=== PATIENT | female | born 1985 | race Two or more races ===

== ENCOUNTER 2019-02-15 01:00 | Emergency (ER) | payer SELFPAY ==
[~2019-02-15] VITALS: Ht 170.2 cm; Wt 163.3 kg
[2019-02-15 02:08] LABS: BASO % 1 % (0-3); EOS # 0.1 x10^3/uL (0.0-0.7); EOS % 2 % (0-3); HEMATOCRIT 26.6 % (36.0-47.0); LYMPH # 1.5 x10^3/uL (1.0-4.8); LYMPH % 24 % (24-48); MEAN CORPUSCULAR HEMOGLOBIN 20 pg (25-35); MEAN CORPUSCULAR HGB CONC 30 g/dL (31-37); MEAN CORPUSCULAR VOLUME 66 fL (79-100); MONO # 0.6 x10^3/uL (0.0-1.1); MONO % 10 % (0-9); NEUT # 3.9 x10^3uL (1.8-7.7); NEUT % 64 % (31-73); PLATELET COUNT 102 x10^3/uL (140-400); RED BLOOD COUNT 4.06 x10^6/uL (3.50-5.40); WHITE BLOOD COUNT 6.2 x10^3/uL (4.0-11.0)
[2019-02-15 02:10] LABS: BILIRUBIN,URINE NEGATIVE (NEG); CLARITY,URINE CLEAR; COLOR,URINE YELLOW; NITRITE,URINE NEGATIVE (NEG); PROTEIN,URINE NEGATIVE (NEG-TRACE); UROBILINOGEN,URINE 0.2 mg/dL (0.2 mg/dL)
[2019-02-15 02:20] LABS: CALCIUM 8.9 mg/dL (8.5-10.1); CREATININE 0.7 mg/dL (0.6-1.0); POTASSIUM 3.6 mmol/L (3.5-5.1)
[2019-02-15 02:24] LABS: BACTERIA,URINE FEW /HPF (0-FEW); SQUAMOUS EPITHELIAL CELL,UR MOD /LPF
[2019-02-15 02:26] LABS: ALBUMIN/GLOBULIN RATIO 0.7 (1.0-1.7); MAGNESIUM 1.7 mg/dL (1.8-2.4); TOTAL BILIRUBIN 0.3 mg/dL (0.2-1.0); TOTAL PROTEIN 7.1 g/dL (6.4-8.2)
[2019-02-15] MEDS ORDERED: CYCLOBENZAPRINE 10 MG TABLET. PO ONE (02:30)
[2019-02-15] MEDS ORDERED: KETOROLAC 15 MG/ML VIAL. IV ONE (02:30)
[2019-02-15] MEDS ORDERED: IV NORMAL SALINE 1000ML BAG 1,000 ML IV ONE (02:30)
[2019-02-15 02:35] LABS: FREE T4 0.94 ng/dL (0.76-1.46); THYROID STIM HORMONE (TSH) 3.777 uIU/mL (0.358-3.74)
[2019-02-15] MEDS ORDERED: CONTRAST GIVEN. MC PRN (04:15)
[2019-02-15 04:33] LABS: HYPOCHROMIA MARKED; PLT ESTIMATE DECREASED (ADEQUATE); POLYCHROMASIA SLIGHT
[2019-02-15 04:34] LABS: ANISOCYTOSIS SLIGHT; MICROCYTOSIS MARKED; OVALOCYTES FEW
--- NOTE | 2019-02-15 04:46 | RAD ---
PQRS Compliance statement: One or more of the following individualized dose reduction techniques were utilized for this examination: 1. Automated exposure control. 2. Adjustment of the mA and/or kV according to patient size. 3. Use of iterative reconstruction technique. Indication:palpitations, elevated d-dimer; Omni 350, 100ml; Pt morbidly obese TECHNIQUE: CT angiogram of the chest with IV contrast with multiplanar MIP reformats. COMPARISON:None FINDINGS: Suboptimal PE study due to contrast bolus timing. No central or proximal segmental filling defects in the pulmonary arteries. Evaluation of distal segmental and subsegmental pulmonary arteries is limited. Heart is normal in size. No pericardial or pleural effusion. Clear neck base. No enlarged axillary adenopathy. No mediastinal or hilar adenopathy. Diffusely nodular appearance of the esophageal wall is seen. There is a masslike lesion in the distal esophagus approximately measuring 6.7 x 3.8 cm. 5 limited nodule along the right major fissure (series 3 image 79) (. Otherwise, lungs are clear. Liver is moderately enlarged measuring 18 cm in longest dimension. Visualized sections through the liver, gallbladder, pancreas within normal limits. Enlarged gastrohepatic recess lymph nodes are seen, the largest measuring 4.8 x 2.9 cm. No suspicious bony lesion. IMPRESSION: 1. Suboptimal PE study due to contrast bolus timing. No central or proximal segmental PE. Evaluation of distal segmental and subsegmental pulmonary arteries is limited. 2. Diffusely nodular appearance of the esophageal wall with distal esophageal mass like lesion. Alternatively this may represent a moderate-sized hiatal hernia. EGD recommended. 3. Enlarged gastrohepatic ligament recess lymph nodes are concerning for either a lymphoproliferative disease or metastasis. 4. Enlarged spleen, nonspecific. Electronically signed by: Bhavik Plata DO (02/15/2019 4:43 AM) [facility]
[2019-02-15 04:50] VITALS: BP 141/71
[2019-02-15] MEDS ORDERED: IOHEXOL 350 MG/ML 100 ML VIAL. IV ONE (05:00)
[2019-02-15] MEDS ORDERED: ORPH100T PO (05:01)
[2019-02-15] MEDS ORDERED: FAMO-63 PO (05:02)
--- NOTE | 2019-02-15 05:02 | PHYS DOC ---
Past Medical History Past Medical History: Diabetes-Type II Past Surgical History: Other Additional Past Surgical Histo: Right Fallopian Tube Removed Alcohol Use: None Drug Use: None Adult General Chief Complaint Chief Complaint: Palpitations HPI HPI Patient is a 33 year old [f__sex] who presents with [] Review of Systems Review of Systems Constitutional: Denies fever or chills [] Eyes: Denies change in visual acuity, redness, or eye pain [] HENT: Denies nasal congestion or sore throat [] Respiratory: Denies cough or shortness of breath [] Cardiovascular: No additional information not addressed in HPI [] GI: Denies abdominal pain, nausea, vomiting, bloody stools or diarrhea [] : Denies dysuria or hematuria [] Musculoskeletal: Denies back pain or joint pain [] Integument: Denies rash or skin lesions [] Neurologic: Denies headache, focal weakness or sensory changes [] Endocrine: Denies polyuria or polydipsia [] All other systems were reviewed and found to be within normal limits, except as documented in this note. Current Medications Current Medications Current Medications Medications (Trade) Dose Ordered Sig/Gigi Start Time Stop Time Status Last Admin Dose Admin Cyclobenzaprine HCl (Flexeril) 10 mg 1X ONCE 02/15/19 02:30 02/15/19 02:31 DC 02/15/19 02:37 10 MG Info (CONTRAST GIVEN -- Rx MONITORING) 1 each PRN DAILY PRN 02/15/19 04:15 02/15/19 05:28 DC Iohexol (Omnipaque 350 Mg/ml) 100 ml 1X ONCE 02/15/19 05:00 02/15/19 05:01 DC 02/15/19 04:15 100 ML Ketorolac Tromethamine (Toradol 15mg Vial) 15 mg 1X ONCE 02/15/19 02:30 02/15/19 02:31 DC 02/15/19 02:37 15 MG Sodium Chloride 1,000 ml @ 1,000 mls/hr 1X ONCE 02/15/19 02:30 02/15/19 03:29 DC 02/15/19 02:37 1,000 MLS/HR Allergies Allergies Allergies Coded Allergies Type Severity Reaction Last Updated Verified Penicillins Allergy Severe Anaphylaxis 02/15/19 Yes Physical Exam Physical Exam Constitutional: Well developed, well nourished, no acute distress, non-toxic appearance. [] HENT: Normocephalic, atraumatic, bilateral external ears normal, oropharynx moist, no oral exudates, nose normal. [] Eyes: PERRLA, EOMI, conjunctiva normal, no discharge. [] Neck: Normal range of motion, no tenderness, supple, no stridor. [] Cardiovascular:Heart rate regular rhythm, no murmur [] Lungs & Thorax: Bilateral breath sounds clear to auscultation [] Abdomen: Bowel sounds normal, soft, no tenderness, no masses, no pulsatile masses. [] Skin: Warm, dry, no erythema, no rash. [] Back: No tenderness, no CVA tenderness. [] Extremities: No tenderness, no cyanosis, no clubbing, ROM intact, no edema. [] Neurologic: Alert and oriented X 3, normal motor function, normal sensory function, no focal deficits noted. [] Psychologic: Affect normal, judgement normal, mood normal. [] Current Patient Data Vital Signs Vital Signs Date Time Temp Pulse Resp B/P (MAP) Pulse Ox O2 Delivery O2 Flow Rate FiO2 02/15/19 04:50 102 16 141/71 (94) 98 Room Air 02/15/19 01:05 98.8 98.8 Lab Values Laboratory Tests Test 02/15/19 01:20 02/15/19 01:35 02/15/19 01:43 Urine Collection Type Unknown Urine Color Yellow Urine Clarity Clear Urine pH 7.0 Urine Specific [place] <=1.005 Urine Protein Negative mg/dL (NEG-TRACE) Urine Glucose (UA) 100 mg/dL (NEG) Urine Ketones (Stick) Negative mg/dL (NEG) Urine Blood Large (NEG) Urine Nitrite Negative (NEG) Urine Bilirubin Negative (NEG) Urine Urobilinogen Dipstick 0.2 mg/dL (0.2 mg/dL) Urine Leukocyte Esterase Trace (NEG) Urine RBC 6-10 /HPF (0-2) Urine WBC 1-4 /HPF (0-4) Urine Squamous Epithelial Cells Mod /LPF Urine Bacteria Few /HPF (0-FEW) White Blood Count 6.2 x10^3/uL (4.0-11.0) Red Blood Count 4.06 x10^6/uL (3.50-5.40) Hemoglobin 8.0 g/dL (12.0-15.5) L Hematocrit 26.6 % (36.0-47.0) L Mean Corpuscular Volume 66 fL (79-100) L Mean Corpuscular Hemoglobin 20 pg (25-35) L Mean Corpuscular Hemoglobin Concent 30 g/dL (31-37) L Red Cell Distribution Width 19.0 % (11.5-14.5) H Platelet Count 102 x10^3/uL (140-400) L Neutrophils (%) (Auto) 64 % (31-73) Lymphocytes (%) (Auto) 24 % (24-48) Monocytes (%) (Auto) 10 % (0-9) H Eosinophils (%) (Auto) 2 % (0-3) Basophils (%) (Auto) 1 % (0-3) Neutrophils # (Auto) 3.9 x10^3uL (1.8-7.7) Lymphocytes # (Auto) 1.5 x10^3/uL (1.0-4.8) Monocytes # (Auto) 0.6 x10^3/uL (0.0-1.1) Eosinophils # (Auto) 0.1 x10^3/uL (0.0-0.7) Basophils # (Auto) 0.0 x10^3/uL (0.0-0.2) Platelet Estimate Decreased (ADEQUATE) Giant Platelets Occ Polychromasia Slight Hypochromasia Marked Anisocytosis Slight Microcytosis Marked Ovalocytes Few D-Dimer (Kira) 0.59 ug/mlFEU (0.00-0.50) H Sodium Level 140 mmol/L (136-145) Potassium Level 3.6 mmol/L (3.5-5.1) Chloride Level 104 mmol/L (98-107) Carbon Dioxide Level 26 mmol/L (21-32) Anion Gap 10 (6-14) Blood Urea Nitrogen 9 mg/dL (7-20) Creatinine 0.7 mg/dL (0.6-1.0) Estimated GFR (Cockcroft-Gault) 97.0 BUN/Creatinine Ratio 13 (6-20) Glucose Level 229 mg/dL (70-99) H Calcium Level 8.9 mg/dL (8.5-10.1) Magnesium Level 1.7 mg/dL (1.8-2.4) L Total Bilirubin 0.3 mg/dL (0.2-1.0) Aspartate Amino Transferase (AST) 27 U/L (15-37) Alanine Aminotransferase (ALT) 33 U/L (14-59) Alkaline Phosphatase 132 U/L (46-116) H Creatine Kinase 143 U/L (26-192) Creatine Kinase MB (Mass) 1.5 ng/mL (0.0-3.6) Creatine Kinase MB Relative Index 1.0 % (0-4) Troponin I Quantitative < 0.017 ng/mL (0.000-0.055) OH-Dde-T-Type Natriuretic Peptide 8 pg/mL (0-124) Total Protein 7.1 g/dL (6.4-8.2) Albumin 3.0 g/dL (3.4-5.0) L Albumin/Globulin Ratio 0.7 (1.0-1.7) L Lipase 633 U/L (73-393) H Thyroid Stimulating Hormone (TSH) 3.777 uIU/mL (0.358-3.74) H Free Thyroxine 0.94 ng/dL (0.76-1.46) Free Triiodothyronine (T3) pg/mL 2.91 pg/mL (2.18-3.98) POC Urine HCG, Qualitative Hcg negative (Negative) Laboratory Tests 02/15/19 01:35 Laboratory Tests 02/15/19 01:35 EKG EKG [] Radiology/Procedures Radiology/Procedures @0111 Sinus tachycardia at 108bpm, NO ST elevation Course & Med Decision Making Course & Med Decision Making Pertinent Labs and Imaging studies reviewed. (See chart for details) [] Dragon Disclaimer Dragon Disclaimer This electronic medical record was generated, in whole or in part, using a voice recognition dictation system. Departure Departure Impression: Primary Impression: Palpitations Additional Impressions: Muscle strain Abnormal finding on CT scan Arm paresthesia, left Disposition: 01 HOME, SELF-CARE Condition: STABLE Referrals: NO PCP (PCP) NAYA HOLLOWAY MD Patient Instructions: Incidental Abnormal Radiological Finding, Muscle Strain, [id number], Palpitations, [id number], Paresthesia, [id number] Scripts Famotidine (PEPCID) 20 Mg Tablet 20 MG PO HS, #30 TAB Prov: AMANDA MITCHELL DO 02/15/19 Orphenadrine Citrate (ORPHENADRINE CITRATE) 100 Mg Tablet.er 100 MG PO BID PRN for MUSCLE PAIN, #14 Prov: AMANDA MITCHELL DO 02/15/19 Problem Qualifiers AMANDA MITCHELL DO Feb 15, 2019 05:02
--- NOTE | 2019-02-15 07:41 | EKG ---
[facility] [address] [place] [address] Test Date: 2019-02-15 Test Time: 01:11:11 Pat Name: ELAINE WONG Department: Room: Gender: F [employer] Supervisor: : 1985 Requested By: AMANDA MITCHELL Order Number: [id number] Reading MD: Edgar Nunez Measurements Intervals [place] Rate: 108 P: 51 SD: 134 QRS: 21 QRSD: 88 T: 30 QT: 350 QTc: 472 Interpretive Statements SINUS TACHYCARDIA NONSPECIFIC ST-T WAVE CHANGES. Electronically Signed On 02-18-2019 9:39:04 CDT by Edgar Nunez
== END 2019-02-15 05:19 | disposition home or self-care (01) ==
LOC: ER 01:00
DX: S29.011A Strain of muscle and tendon of front wall of thorax, initial encounter (principal); R20.2 Paresthesia of skin; E11.9 Type 2 diabetes mellitus without complications; Z88.0 Allergy status to penicillin; X58.XXXA Exposure to other specified factors, initial encounter; Y93.89 Activity, other specified; Y92.89 Other specified places as the place of occurrence of the external cause; Y99.8 Other external cause status
CPT/HCPCS: 36415; 71275; 80053; 81001; 81025; 82553; 83690; 83735; 83880; 84439; 84443; 84481; 84484; 85025; 85379; 87086; 93005; 96374; 99285; J1885; J7030; Q9967

== ENCOUNTER → 2020-05-09 | Outpatient (CLI) | payer OTHER ==
[~2020-05-09] MED LIST: FAMO-63 PO; ORPH100T PO
--- NOTE | 2020-05-09 10:50 | RAD ---
EXAM: Pelvic ultrasound HISTORY: Irregular menses. COMPARISON: None. FINDINGS: Sonographic evaluation of the pelvis was performed transabdominally and transvaginally. The uterus is anteverted and measures 9.4 x 7.0 x 4.4 cm. The endometrial stripe measures 13 mm. No masses are identified. There is no significant free fluid. The right ovary measures 2.7 x 3.0 x 2.0 cm. The right ovary cannot be visualized transvaginally. Peripheral follicles are not clearly detected transabdominally. The left ovary measures 4.1 x 2.7 x 1.7 cm. Multiple small peripheral follicles are noted in the left ovary. There is normal Doppler flow bilaterally. There are no suspicious lesions. IMPRESSION: 1. Multiple small peripheral follicles in the left ovary are compatible with the diagnosis of polycystic ovarian syndrome. Correlate with other clinical data. 2. Endometrial thickness 13 mm can be normal in a premenopausal patient. Electronically signed by: Triston Medina MD (05/09/2020 10:47 AM) [id number]
== END | disposition home or self-care (01) ==
LOC: US 08:52
PROVIDERS: ATTEND Obstetrics & Gynecology
DX: E28.2 Polycystic ovarian syndrome (principal); N92.6 Irregular menstruation, unspecified
CPT/HCPCS: 76830; 76856